=== PATIENT | female | born 1940 | race Caucasian/White ===

== ENCOUNTER 2017-11-05 18:02 | Inpatient (IN) | payer MEDICARE, BC ==
[2017-11-05 19:33] LABS: Troponin I 0.928 ng/mL (< 0.028)
[2017-11-06] MEDS ORDERED: Heparin 10,000 UNITS/ 10 ML VIAL SLOW IVP SCH ×2 (01:30→03:01)
[2017-11-06] MEDS ORDERED: Heparin 25,000 units/D5W 500 ML IV SCH (01:30)
[2017-11-06 01:44] VITALS: BMI 31.8
[2017-11-06 02:23] LABS: PTT 175.7 SEC (22.9-36.1)
[2017-11-06] MEDS ORDERED: Heparin 25,000 units/D5W 500 ML IVPB SCH (03:01)
[2017-11-06] MEDS ORDERED: Acetaminophen 325 MG TAB PO PRN (03:01)
[2017-11-06] MEDS ORDERED: Senokot 8.6 MG TAB PO PRN (03:01)
[2017-11-06] MEDS ORDERED: Nitroglycerin 50 MG/250 ML BOT 250 ML IVPB SCH (03:01)
[2017-11-06] MEDS ORDERED: Aspirin 325 MG TAB PO SCH ×2 (03:15→08:00)
[2017-11-06 03:22] LABS: Hemoglobin 11.7 g/dL (12.0-16.0); Platelet Count 341 thou/uL (130-400)
[2017-11-06 03:23] LABS: #Basophils 0.1 thou/uL (0.0-0.2); #Eosinphils 0.2 thou/uL (0.0-0.7); #Lymphocytes 3.4 thou/uL (1.20-3.40); #Monocytes 0.7 thou/uL (0.11-0.59); %Basophils 0.7 % (0.0-1.0); %Eosinophils 1.7 % (0.0-10.0); %Lymphocytes 36.9 % (21.0-51.0); %Neutrophils 53.7 % (42.0-75.0); Hemoglobin 11.7 g/dL (12.0-16.0); Mean Corpuscular HGB CONC 34.3 g/dL (32.0-36.0); Mean Corpuscular Hemoglobin 33.7 pg (27.0-31.0); Mean Corpuscular Volume 98.3 fl (81.0-99.0); Mean Platelet Volume 6.6 fL (7.4-10.4); Platelet Count 336 thou/uL (130-400); RBC Distribution Width 11.3 % (11.5-14.5); Red Blood Cell (RBC) Count 3.48 mill/uL (4.20-5.40); White Blood Cell (WBC) Count 9.3 thou/uL (4.8-10.8)
[2017-11-06 03:45] LABS: Anion Gap 13 mmol/L (10-20); BUN (Urea Nitrogen) 26 mg/dL (9.8-20.1); Calc. Creatinine Clearance 50 mL/min (70-130); Calcium 9.3 mg/dL (7.8-10.44); Carbon Dioxide 27 mmol/L (23-31); Cardiac Risk 3.6 (Less than 4.5); Chloride 104 mmol/L (98-107); Cholesterol 203 mg/dl (< 200 Desired); Estimated GFR-MDRD 52; Glucose 119 mg/dL (83-110); HDL Cholesterol 57 mg/dL (>60 Neg Risk); LDL Cholesterol, Calculated 122 mg/dL; Potassium 3.6 mmol/L (3.5-5.1); Sodium 140 mmol/L (136-145); Triglycerides 121 mg/dL (Less than 150)
[2017-11-06] MEDS ORDERED: Heparin 25,000 units/D5W 500 ML ONE (03:55)
--- NOTE | 2017-11-06 03:56 | HP ---
REASON FOR ADMISSION: Unstable angina. HISTORY OF PRESENT ILLNESS: The patient gives history of watching TV around 2: 00 p.m. yesterday when she started to develop retrosternal chest pain. The chest pains were 3 to 4/10 in intensity. This was lasting few minutes. The chest pains progressively got worse with intensity going up to 8/10 with radiation to left upper extremity, especially the thumb. She took a baby aspirin, but did not find much relief. She started to develop shortness of breath and finally went to [facility]. The patient also mentions that she ate stew day before and had some acid reflux symptoms and yesterday afternoon, she ate ramen noodles and again she thought she had acid reflux now retrospectively if she thinks both were episodes of possible chest pain like as of now. The patient follows up with Dr. Basil Levy, business services associate in [place]. She has had bilateral stents placed likely in her iliac arteries the way patient describes in 07/2017. She has had coronary artery bypass done in [address] Talley in [place]. PAST MEDICAL AND SURGICAL HISTORY: History of CABG in [address] Talley in [place] , prior stent to the coronary artery disease by Dr. Basil Levy likely iliac artery stent were done in 07/2017. She has had left carotid stents placed by Dr. Levy as well. Hypertension, dyslipidemia, appendectomy, cholecystectomy, hysterectomy. CURRENT MEDICATIONS: The patient is on Plavix 75 mg p.o. daily, aspirin 81 mg p.o. daily, Norvasc 10 mg daily, atorvastatin 40 mg p.o. q.p.m., Tribenzor 40/5/ 25 mg daily, rabeprazole 20 mg daily, celecoxib 100 mg 2 times daily. ALLERGIES: Allergic to LATEX, LISINOPRIL and STADOL. PERSONAL HISTORY: Does not abuse alcohol or drugs. No history of smoking. FAMILY HISTORY: Mom of aneurysm and its complications at the age of 68. Father of lung cancer in his 70s. REVIEW OF SYSTEMS: The following complete review of systems was negative, unless otherwise mentioned in the HPI or below: Constitutional: Weight loss or gain, ability to conduct usual activities. Skin: Rash, itching. Eyes: Double vision, pain. ENT/Mouth: Nose bleeding, neck stiffness, pain, tenderness. Cardiovascular: Palpitations, dyspnea on exertion, orthopnea. Respiratory: Shortness of breath, wheezing, cough, hemoptysis, fever or night sweats. Gastrointestinal: Poor appetite, abdominal pain, heartburn, nausea, vomiting, constipation, or diarrhea. Genitourinary: Urgency, frequency, dysuria, nocturia. Musculoskeletal: Pain, swelling. Neurologic/Psychiatric: Anxiety, depression. Allergy/Immunologic: Skin rash, bleeding tendency. PHYSICAL EXAMINATION: GENERAL: The patient is a 77-year-old female who is currently having mild chest discomfort. VITAL SIGNS: Blood pressure 116/74, pulse 68 per minute, respiratory rate 16 per minute, temperature 97.9 degrees Fahrenheit, saturating 94% on 4 liters nasal cannula on arrival. NECK: Supple, no elevated JVD. HEENT: Eyes: Extraocular muscles intact. Pupils reacting to light. Oral cavity: Mucous membranes are moist. No exudates or congestion. CARDIOVASCULAR SYSTEM: S1, S2 heard. Regular rhythm. RESPIRATORY: Air entry 1+ bilateral. Basal rales plus bilateral. ABDOMEN: Soft, bowel sounds heard. No tenderness, rigidity or guarding. EXTREMITIES: No peripheral edema or calf tenderness. Peripheral pulses are 1+ bilateral. No ischemic ulcers or gangrene. 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 CENTRAL NERVOUS SYSTEM: No gross focal deficits seen. The patient is alert, awake, oriented well. PSYCHIATRIC SYSTEM: The patient's mood is euthymic. No hallucinations or delusions. LABORATORY DATA AND X-RAY FINDINGS: EKG done shows sinus rhythm at 70 beats per minute. There is incomplete RBBB seen. White count of 11, H and H 13 and 38, platelet count 333 with 65% neutrophils, MCV is 93. PT, INR, PTT on arrival was within normal limits. PTT done at 1:50 a.m. on heparin drip is 175. Serum bicarbonate 21, BUN 30, creatinine 1.3, serum glucose is 295, albumin is 4.5, troponin I initial set was 0.04, the second set was 0.92, and third set is jump to 8.22, CK-MB was 4.3 on arrival. BNP 393.6. Chest x-ray done shows pulmonary vascular congestion. CLINICAL IMPRESSION AND PLAN: The patient will be admitted to ICU for unstable angina. Dr. Worley has been notified from ER. Patient will be kept n.p.o. We will let Dr. Worley know about the troponin jump up to 8. We will try to obtain records from Dr. Basil Levy her business services associate in [place]. This will be done in the morning. We will continue her on heparin drip and nitroglycerin drip. She will be on aspirin, Plavix, Lipitor, Lopressor 25 mg twice daily and morphine p.r.n. for pain. Echo with 2D Doppler will be obtained. Lipid profile as well. We will continue to closely monitor her in ICU. BRANDON
[2017-11-06] MEDS: Clopidogrel Bisulfate 75 MG TAB PO SCH (09:08)
[2017-11-06] MEDS: Metoprolol Tartrate 25 MG TAB PO SCH ×2 (09:20→20:54)
[2017-11-06] MEDS: Famotidine/PF 20 mg/2ml Vial SLOW IVP SCH (09:21)
--- NOTE | 2017-11-06 12:38 | PDOC.PN ---
- Subjective Encounter Start Date: 11/06/17 Encounter Start Time: 15:54 CC: Chest pain Sub: pt denies chest pain, denies dyspnea - Objective Resuscitation Status: Resuscitation Status FULL:Full Resuscitation Vital Signs & Weight: Vital Signs (12 hours) Temp Pulse Resp BP Pulse Ox 11/06/17 11:00 97.9 F 11/06/17 08:30 99.1 F 71 16 96 11/06/17 08:00 99.1 F 11/06/17 04:10 98.8 F 65 20 95 11/06/17 04:00 98.8 F 11/06/17 01:30 97.9 F 62 15 153/54 H 97 Most Recent Monitor Data Heart Rate from ECG 59 NIBP 138/47 NIBP BP-Mean 87 Respiration from ECG 15 SpO2 100 I&O: 11/05/17 11/06/17 11/07/17 06:59 06:59 06:59 Intake Total 16 0 Output Total 800 550 Balance -784 -550 Result Diagrams: 11/06/17 03:09 11/06/17 03:09 Phys Exam - Physical Examination Constitutional: NAD HEENT: moist MMs Neck: no JVD Respiratory: no wheezing, no rales, no rhonchi Cardiovascular: RRR, no significant murmur, no rub Gastrointestinal: soft, non-tender, no distention Neurological: non-focal Psychiatric: normal affect, A&O x 3 Skin: no rash Dx/Plan - Plan * . Pt is 77 yrs old female now admitted to hospital due to angina 1. Unstable angina + NSTEMI: Appreciate cardio input Pt wants to think about cath at this time. Management per cardio 2. HTN: Monitor bp clsoely. Continue bp med.s 3. H/O CAD: Continue plavix 75 mg po daily 4. H/O HPL + GERD: Continue statin and PPI case d/w pt & RN
--- NOTE | 2017-11-06 12:51 | CON ---
DATE OF CONSULTATION: 11/06/2017 HISTORY OF PRESENT ILLNESS: The patient is a pleasant 77-year-old woman with a history of coronary artery disease and peripheral vascular disease who presented with substernal chest discomfort. The patient has a long history of coronary artery disease. In 2002, she underwent coronary bypass graft surgery x3. She had a WATSON placed to the LAD and two saphenous vein grafts. The patient also has a history of severe peripheral vascular disease. She has had stents placed into her carotid arteries and non-amenable arteries. She also has a history of peripheral vascular disease and has stents placed into both iliac arteries as well as the distal aorta. The patient was in her usual state of health when she suddenly developed left-sided chest discomfort. The patient presented to the emergency room and received medication with resolution of her chest pain. The patient denies having any present chest discomfort. PAST MEDICAL HISTORY: 1. Coronary artery disease. 2. Cerebrovascular disease, status post stents in the carotid arteries. 3. Peripheral vascular disease. 4. Hypertension. 5. Dyslipidemia. 6. GE reflux. 7. History of renal artery stenosis with stents. PAST SURGICAL HISTORY: Hysterectomy, coronary bypass graft surgery, cholecystectomy, and carpal tunnel surgery. SOCIAL HISTORY: She is a former smoker. MEDICATIONS ON ADMISSION: Norvasc 10 daily, Plavix 75 daily, Lipitor 40 at bedtime, Tribenzor, 40/25 one tablet daily,and Celebrex 100 mg p.o. b.i.d. ALLERGIC: LATEX, STADOL, and LISINOPRIL. LISINOPRIL causes coughing. PHYSICAL EXAMINATION: GENERAL: She is a well-developed woman in no acute distress. VITAL SIGNS: Blood pressure 138/47. NECK: No jugular venous distention. LUNGS: Clear to auscultation. HEART: Regular rate and rhythm, normal S1, S2, 1/6 systolic murmur. ABDOMEN: Nondistended. EXTREMITIES: No edema. VASCULAR: Her left femoral pulse is 2+, the right femoral pulse is diminished. Distal pulses are diminished. LABORATORY DATA: White blood cell count 9.3, hemoglobin 11.7, hematocrit 34.2, platelets are 336. Her sodium was 140, potassium 3.6, chloride 104, bicarbonate 27, BUN 26, creatinine 1.03, glucose is 119, and troponin was 8.2. Her EKG revealed to have normal sinus rhythm with incomplete right bundle branch block and no acute ST-T wave changes. IMPRESSION: 1. Non-Q-wave myocardial infarction. 2. History of coronary bypass surgery x3. 3. Severe peripheral vascular disease with history of iliac stent and abdominal stents. This patient presents with a non-Q-wave myocardial infarction. The patient has a history of severe peripheral vascular disease. I have recommended the patient proceed with a repeat cardiac catheterization to define whether she has developed progressive coronary artery disease. The patient at this time is unsure whether she would like to proceed if she becomes agreeable,I will proceed with cardiac catheterization tomorrow morning. The patient will be treated with aspirin, Plavix, heparin, lipid-lowering medication and a beta- balwinder therapy. We will follow this patient with you through her hospitalization. BRANDON
[2017-11-06] MEDS: Atorvastatin Calcium 20 MG TAB PO SCH (20:54)
--- NOTE | 2017-11-06 21:46 | PRG ---
DATE OF SERVICE: 11/06/2017 Ms. Coyle is a 77-year-old female. She presented with severe retrosternal chest discomfort. She says she initially thought this is indigestion, but she did her usual, drink some liquids and swallowed some times. When her pain did not go way, she started to become concerned. She eventually presented to the emergency room and subsequently has been admitted to the ICU. I am consulted because they presented to the Critical Care Unit. She says she is pain free now. PAST MEDICAL HISTORY: Remarkable for, 1. Coronary artery bypass grafting in 2002. 2. History of carotid stenting bilaterally. 3. History of peripheral vascular disease. 4. History of hypertension. 5. Lipid disorder. 6. History of reflux disease. 7. History of renal stent. 8. Status post hysterectomy. 9. Status post cholecystectomy. 10. History of abdominal surgery. SOCIAL HISTORY: She is a former smoker, not a drinker. ALLERGIES: She reports intolerance to STADOL, LISINOPRIL, and LATEX. MEDICATIONS: She was on Norvasc, Plavix, Lipitor, Tribenzor, and Celebrex prior to admission. REVIEW OF SYSTEMS: Otherwise completely negative 12-point. FAMILY HISTORY: Noncontributory PHYSICAL EXAMINATION: GENERAL: She is in no distress. VITAL SIGNS: Blood pressure 163/57 this afternoon, 146/51 earlier. Heart rate in the 60s, respiratory rate in the teens. HEENT: Pupils are equal. Sclerae is anicteric. NECK: Supple. LUNGS: Clear. HEART: Regular rate and rhythm. S1 and S2 normal. Shows grade 2/6 systolic murmur. ABDOMEN: Soft and nontender. EXTREMITIES: Without asymmetry. LABORATORY DATA: White count 9.3, hemoglobin 11.7, platelets 336,000. Sodium 140, potassium 3.6, chloride 104, bicarb 27, BUN 26, creatinine 1.03, glucose 119. IMPRESSION: Angina with a non-Q-wave myocardial infarction. She is pain free. She is trying to decide whether she wants to undergo cardiac catheterization. She is contemplating to following up with her wage conciliator in [place]. We will happy to follow along with the other physicians caring for her. She is stable at this time. This is a 50 min consult with greater than 50% of the time was spent coordinating care on the unit. I also met with the and answered all of his questions. He had little to add to the above history. BRANDON
[2017-11-07 01:32] LABS: PTT 233.5 SEC (22.9-36.1)
[2017-11-07] MEDS: Clopidogrel Bisulfate 75 MG TAB PO SCH (08:21)
[2017-11-07] MEDS: Amlodipine 10 MG TAB PO SCH (08:21)
[2017-11-07] MEDS: Metoprolol Tartrate 25 MG TAB PO SCH ×2 (08:21→20:29)
[2017-11-07] MEDS: Famotidine/PF 20 mg/2ml Vial SLOW IVP SCH (08:25)
--- NOTE | 2017-11-07 15:44 | PDOC.PN ---
- Subjective Encounter Start Date: 11/07/17 Encounter Start Time: 15:43 Subjective: feels well. no new complaints. -: no more chest pain/SOB. -: family at bedside. care discussed - Objective Resuscitation Status: Resuscitation Status FULL:Full Resuscitation MAR Reviewed: Yes Vital Signs & Weight: Vital Signs (12 hours) Temp Pulse Pulse Pulse Resp BP BP 11/07/17 12:00 97.5 F L 11/07/17 09:58 55 L 50 L 154/43 H 151/46 H 11/07/17 08:21 62 11/07/17 07:24 98.0 F 62 16 11/07/17 07:00 98.0 F 11/07/17 03:51 98.1 F Pulse Ox Pulse Ox Pulse Ox 11/07/17 12:00 11/07/17 09:58 98 96 11/07/17 08:21 11/07/17 07:24 96 11/07/17 07:00 11/07/17 03:51 Most Recent Monitor Data Heart Rate from ECG 59 NIBP 125/43 NIBP BP-Mean 99 Respiration from ECG 15 SpO2 100 I&O: 11/06/17 11/07/17 11/08/17 06:59 06:59 06:59 Intake Total 16 1085 523.6 Output Total 800 2600 1050 [facility]784 -1515 -526.4 Result Diagrams: 11/06/17 03:09 11/06/17 03:09 Additional Labs: Laboratory Tests 11/05/17 11/05/17 11/05/17 17:05 18:53 21:55 Troponin I 0.042 H 0.928 H* 8.220 H* Radiology Reviewed by me: Yes (ECHO-NL EF.Diastolic dysFx) Phys Exam - Physical Examination Constitutional: NAD HEENT: PERRLA, moist MMs, sclera anicteric, TM's clear, oral pharynx no lesions , 2+ tonsils Neck: no nodes, no JVD, supple, full ROM Respiratory: no wheezing, no rales, no rhonchi, clear to auscultation bilateral Cardiovascular: RRR, no significant murmur Gastrointestinal: soft, non-tender, no distention, positive bowel sounds Musculoskeletal: no edema, pulses present Neurological: non-focal, normal sensation, moves all 4 limbs Psychiatric: normal affect, A&O x 3 Skin: no rash Dx/Plan (1) NSTEMI (non-ST elevated myocardial infarction) Code(s): I21.4 - NON-ST ELEVATION (NSTEMI) MYOCARDIAL INFARCTION Status: Acute (2) CAD (coronary artery disease) Code(s): I25.10 - ATHSCL HEART DISEASE OF [place] CORONARY ARTERY W/O ANG PCTRS Status: Chronic (3) HTN (hypertension) Code(s): I10 - ESSENTIAL (PRIMARY) HYPERTENSION Status: Chronic (4) HLD (hyperlipidemia) Code(s): E78.5 - HYPERLIPIDEMIA, UNSPECIFIED Status: Chronic - Plan plan discussed w/ family, out of bed/ambulate, DVT proph w/SCDs Cont ASA,statin,BB,ARB,Plavix -: Pt does not want cath here.will f/u w her maintenance worker in [place], [place] -: HD stable.OK to transition to Tele floor. -: cardiology following. -: am labs * . Review of Systems - Review of Systems Constitutional: negative: fever, chills, sweats, weakness, malaise, other Respiratory: negative: Cough, Dry, Shortness of Breath, Hemoptysis, SOB with Excertion, Pleuritic Pain, Sputum, Wheezing Cardiovascular: negative: chest pain, palpitations, orthopnea, paroxysmal nocturnal dyspnea, edema, light headedness, other Gastrointestinal: negative: Nausea, Vomiting, Abdominal Pain, Diarrhea, Constipation, Melena, Hematochezia, Other Genitourinary: negative: Dysuria, Frequency, Incontinence, Hematuria, Retention , Other Musculoskeletal: negative: Neck Pain, Shoulder Pain, Arm Pain, Back Pain, Hand Pain, Leg Pain, Foot Pain, Other Neurological: negative: Weakness, Numbness, Incoordination, Change in Speech, Confusion, Seizures, Other - Medications/Allergies Allergies/Adverse Reactions: Allergies Allergy/AdvReac Type Severity Reaction Status Date / Time butorphanol tartrate Allergy Verified 04/09/13 14:40 [From Stadol] lisinopril Allergy Verified 04/07/14 17:44 Medications: Current Medications Acetaminophen (Tylenol) 650 mg PO Q4H PRN PRN Reason: Headache/Fever or Pain Amlodipine Besylate (Norvasc) 10 mg PO DAILY CARMEN Last Admin: 11/07/17 08:21 Dose: 10 mg Aspirin (Aspirin Chewable) 81 mg PO QAM-WM [facility] Last Admin: 11/07/17 08:25 Dose: 81 mg Atorvastatin Calcium (Lipitor) 20 mg PO QPM [facility] Last Admin: 11/06/17 20:54 Dose: 20 mg Clopidogrel Bisulfate (Plavix) 75 mg PO DAILY [facility] Last Admin: 11/07/17 08:21 Dose: 75 mg Enoxaparin Sodium (Lovenox) 40 mg SC 2100 [facility] Famotidine (Pepcid) 20 mg SLOW IVP Q24HR [facility] Last Admin: 11/07/17 08:25 Dose: 20 mg Heparin Sodium (Porcine) (Heparin 1,000 Units/Ml (10 Ml)) 0 units SLOW IVP ASDIR CARMEN PRN Reason: Protocol Last Admin: 11/06/17 19:12 Dose: 2,300 unit Nitroglycerin/Dextrose (Nitroglycerin 50 Mg/250 Ml Bot) 250 mls @ 0 mls/hr IVPB INF [facility]; Titrate PRN Reason: Protocol Metoprolol Tartrate (Lopressor) 25 mg PO BID [facility] Last Admin: 11/07/17 08:21 Dose: 25 mg Morphine Sulfate (Morphine) 2 mg SLOW IVP Q5MIN PRN PRN Reason: Chest Pain Olmesartan (Benicar) 20 mg PO DAILY [facility] Last Admin: 11/07/17 08:21 Dose: 20 mg Senna (Senokot) 2 tab PO HSPRN PRN PRN Reason: Constipation Sodium Chloride (Flush - Normal Saline) 10 ml IVF Q12HR [facility] Last Admin: 11/07/17 08:21 Dose: 10 ml Sodium Chloride (Flush - Normal Saline) 10 ml IVF PRN PRN PRN Reason: Saline Flush
[2017-11-07] MEDS: Atorvastatin Calcium 20 MG TAB PO SCH (20:29)
[2017-11-07] MEDS: Enoxaparin Sodium 40 MG/0.4 ML SYRINGE SC SCH (20:29)
--- NOTE | 2017-11-07 21:17 | PRG ---
DATE OF SERVICE: 11/07/2017 SUBJECTIVE: Shonna Coyle denies having chest pain. She is tentatively scheduled to move out of [facility] ICU. OBJECTIVE: VITAL SIGNS: She is on room air, heart rate is in 50s, blood pressure 158/74, respiratory rates in t he teens. LUNGS: Clear. HEART: Regular rhythm. ABDOMEN: Soft. LABORATORY DATA: There is no new lab. Troponin 2 days ago was 8.2. IMPRESSION: Myocardial infarction. PLAN: Continue current care. I met with the family and answered all their questions.
[2017-11-08] MEDS ORDERED: CCU Electrolyte Replacement 1 EACH FS ONE (00:02)
[2017-11-08] MEDS ORDERED: Atropine Sulfate 1 mg/10 ml Syringe IVP PRN (00:02)
--- NOTE | 2017-11-08 00:04 | PDOC.EVN ---
Event Note - Event Note Event Note: RN called due to bradycardia. Will get STAT labs. Atropine PRN
[2017-11-08] MEDS ORDERED: Potassium Chloride 40 MEQ in Premix Bag 1 BAG IVPB PRN (00:08)
[2017-11-08] MEDS ORDERED: Magnesium Oxide 400 MG TAB PO PRN ×2 (00:08)
[2017-11-08] MEDS ORDERED: Magnesium 2 GM/NS 0.9% 100 ML 2 GM in Premix Bag 1 BAG IVPB PRN (00:08)
[2017-11-08] MEDS ORDERED: Potassium Phosphate 9 MMOL in Sodium Chloride 0.9% 100 ML IVPB PRN (00:08)
[2017-11-08] MEDS ORDERED: Potassium Chloride 40 MEQ in Sodium Chloride 0.9% 250 ML 250 ML IVPB PRN (00:08)
[2017-11-08] MEDS ORDERED: Potassium Chloride 20 MEQ TAB PO PRN (00:08)
[2017-11-08] MEDS ORDERED: Potassium Phosphate 12 MMOL in Sodium Chloride 0.9% 250 ML 250 ML IV PRN (00:08)
[2017-11-08] MEDS ORDERED: CCU ELECTROLYTE REPLACEMENT PROTOCOL FS PRN (00:08)
[2017-11-08] MEDS ORDERED: Potassium Phosphate 15 MMOL in Sodium Chloride 0.9% 250 ML 250 ML IV PRN (00:08)
[2017-11-08 00:39] LABS: #Basophils 0.1 thou/uL (0.0-0.2); #Eosinphils 0.3 thou/uL (0.0-0.7); #Lymphocytes 3.4 thou/uL (1.20-3.40); #Monocytes 0.6 thou/uL (0.11-0.59); #Neutrophils 3.6 thou/uL (1.40-6.50); %Basophils 0.9 % (0.0-1.0); %Eosinophils 3.7 % (0.0-10.0); %Lymphocytes 42.9 % (21.0-51.0); %Monocytes 7.8 % (0.0-10.0); %Neutrophils 44.8 % (42.0-75.0); Hemoglobin 12.5 g/dL (12.0-16.0); Mean Corpuscular HGB CONC 33.1 g/dL (32.0-36.0); Mean Corpuscular Volume 99.5 fl (81.0-99.0); Mean Platelet Volume 6.3 fL (7.4-10.4); Platelet Count 327 thou/uL (130-400); RBC Distribution Width 11.3 % (11.5-14.5); Red Blood Cell (RBC) Count 3.79 mill/uL (4.20-5.40); White Blood Cell (WBC) Count 7.9 thou/uL (4.8-10.8)
[2017-11-08 00:57] LABS: Albumin 3.9 g/dL (3.4-4.8); Anion Gap 15 mmol/L (10-20); BUN (Urea Nitrogen) 20 mg/dL (9.8-20.1); BUN/Creatinine Ratio 18.69; Calc. Creatinine Clearance 48 mL/min (70-130); Calcium 9.1 mg/dL (7.8-10.44); Carbon Dioxide 22 mmol/L (23-31); Chloride 102 mmol/L (98-107); Estimated GFR-MDRD 49; Glucose 98 mg/dL (83-110); Magnesium 1.8 mg/dL (1.6-2.6); Phosphorus 4.3 mg/dL (2.3-4.7); Potassium 3.6 mmol/L (3.5-5.1); Sodium 135 mmol/L (136-145)
[2017-11-08] MEDS: Famotidine/PF 20 mg/2ml Vial SLOW IVP SCH (07:54)
[2017-11-08] MEDS: Amlodipine 10 MG TAB PO SCH (07:54)
[2017-11-08] MEDS: Clopidogrel Bisulfate 75 MG TAB PO SCH (07:55)
[2017-11-08 14:27] LABS: Anion Gap 14 mmol/L (10-20); BUN (Urea Nitrogen) 21 mg/dL (9.8-20.1); Calc. Creatinine Clearance 45 mL/min (70-130); Calcium 9.1 mg/dL (7.8-10.44); Carbon Dioxide 23 mmol/L (23-31); Chloride 100 mmol/L (98-107); Estimated GFR-MDRD 46; Glucose 93 mg/dL (83-110); Potassium 4.3 mmol/L (3.5-5.1); Sodium 133 mmol/L (136-145)
--- NOTE | 2017-11-08 15:05 | PDOC.PN ---
- Subjective Encounter Start Date: 11/08/17 Encounter Start Time: 15:03 Subjective: feels much better. no chest pain/SOB.good appetite - Objective Resuscitation Status: Resuscitation Status FULL:Full Resuscitation MAR Reviewed: Yes Vital Signs & Weight: Vital Signs (12 hours) Temp Pulse Resp Pulse Ox 11/08/17 11:00 98.0 F 11/08/17 08:00 97.7 F 52 L 15 98 11/08/17 07:00 97.7 F 11/08/17 04:00 98 F Most Recent Monitor Data Heart Rate from ECG 51 NIBP 163/57 NIBP BP-Mean 110 Respiration from ECG 15 SpO2 98 I&O: 11/07/17 11/08/17 11/09/17 06:59 06:59 06:59 Intake Total 1085 1563.6 1200 Output Total 2600 3300 1125 Balance -1515 -1736.4 75 Result Diagrams: 11/08/17 00:23 11/08/17 13:57 Additional Labs: Laboratory Tests 11/05/17 11/05/17 11/06/17 18:53 21:55 03:09 Creatinine 1.03 Phosphorus Troponin I 0.928 H* 8.220 H* Triglycerides 121 Cholesterol 203 H LDL Cholesterol, Calc 122 HDL Cholesterol 57 11/08/17 11/08/17 00:23 13:57 Creatinine 1.07 1.15 H Phosphorus 4.3 Troponin I Triglycerides Cholesterol LDL Cholesterol, Calc HDL Cholesterol Phys Exam - Physical Examination Constitutional: NAD HEENT: PERRLA, moist MMs, sclera anicteric, oral pharynx no lesions Neck: no nodes, no JVD, supple, full ROM Respiratory: no wheezing, no rales, no rhonchi, clear to auscultation bilateral Cardiovascular: RRR, no significant murmur Gastrointestinal: soft, non-tender, no distention, positive bowel sounds Musculoskeletal: no edema, pulses present Neurological: non-focal, normal sensation, moves all 4 limbs Psychiatric: normal affect, A&O x 3 Skin: no rash Dx/Plan (1) NSTEMI (non-ST elevated myocardial infarction) Code(s): I21.4 - NON-ST ELEVATION (NSTEMI) MYOCARDIAL INFARCTION Status: Acute (2) CAD (coronary artery disease) Code(s): I25.10 - ATHSCL HEART DISEASE OF [place] CORONARY ARTERY W/O ANG PCTRS Status: Chronic (3) HTN (hypertension) Code(s): I10 - ESSENTIAL (PRIMARY) HYPERTENSION Status: Chronic (4) HLD (hyperlipidemia) Code(s): E78.5 - HYPERLIPIDEMIA, UNSPECIFIED Status: Chronic - Plan plan discussed w/ family, respiratory therapy, incentive spirometry, out of bed/ ambulate, DVT proph w/SCDs cont ASA,ARB.statin,plavix.off of Heparin drip. -: Had sinus bradycardia while sleeping ;last night.BB held. -: monitor renal Fx .ARB dose increased.BP controlled.on amlodipine -: monitor Overnight & DC in am if no more hypotension/bradycardia -: wants to f/u w her own uat tester for Cath.has appointment * . Review of Systems - Review of Systems Constitutional: negative: fever, chills, sweats, weakness, malaise, other ENT: negative: Ear Pain, Ear Discharge, Nose Pain, Nose Discharge, Nose Congestion, Mouth Pain, Mouth Swelling, Throat Pain, Throat Swelling, Other Respiratory: negative: Cough, Dry, Shortness of Breath, Hemoptysis, SOB with Excertion, Pleuritic Pain, Sputum, Wheezing Cardiovascular: negative: chest pain, palpitations, orthopnea, paroxysmal nocturnal dyspnea, edema, light headedness, other Gastrointestinal: negative: Nausea, Vomiting, Abdominal Pain, Diarrhea, Constipation, Melena, Hematochezia, Other Genitourinary: negative: Dysuria, Frequency, Incontinence, Hematuria, Retention , Other Musculoskeletal: negative: Neck Pain, Shoulder Pain, Arm Pain, Back Pain, Hand Pain, Leg Pain, Foot Pain, Other Neurological: negative: Weakness, Numbness, Incoordination, Change in Speech, Confusion, Seizures, Other - Medications/Allergies Allergies/Adverse Reactions: Allergies Allergy/AdvReac Type Severity Reaction Status Date / Time butorphanol tartrate Allergy Verified 04/09/13 14:40 [From Stadol] lisinopril Allergy Verified 04/07/14 17:44 Medications: Current Medications Acetaminophen (Tylenol) 650 mg PO Q4H PRN PRN Reason: Headache/Fever or Pain Amlodipine Besylate (Norvasc) 10 mg PO DAILY [facility] Last Admin: 11/08/17 07:54 Dose: 10 mg Aspirin (Aspirin Chewable) 81 mg PO QA-[facility] Last Admin: 11/08/17 07:55 Dose: 81 mg Atorvastatin Calcium (Lipitor) 20 mg PO QPM [facility] Last Admin: 11/07/17 20:29 Dose: 20 mg Atropine Sulfate (Atropine) 0.5 mg IVP ASDIR PRN PRN Reason: Sustained Bradycardia Clopidogrel Bisulfate (Plavix) 75 mg PO DAILY [facility] Last Admin: 11/08/17 07:55 Dose: 75 mg Enoxaparin Sodium (Lovenox) 40 mg SC 2100 [facility] Last Admin: 11/07/17 20:29 Dose: 40 mg Famotidine (Pepcid) 20 mg PO BID [facility] Nitroglycerin/Dextrose (Nitroglycerin 50 Mg/250 Ml Bot) 250 mls @ 0 mls/hr IVPB INF CARMEN; Titrate PRN Reason: Protocol Potassium Chloride 40 meq/ (Sodium Chloride) 270 mls @ 135 mls/hr IVPB ASDIR PRN PRN Reason: FOR SERUM K+ 2.5 - 3.5 Potassium Chloride 40 meq/ (Device) 100 mls @ 50 mls/hr IVPB ASDIR PRN PRN Reason: FOR SERUM K+ 2.5 - 3.5 Magnesium Sulfate 1 gm/ Sodium (Chloride) 102 mls @ 102 mls/hr IV PRN PRN PRN Reason: MAG LEVEL 1.4 - 2.0 Last Admin: 11/08/17 01:11 Dose: 102 mls Magnesium Sulfate 2 gm/ Device 100 mls @ 100 mls/hr IVPB ASDIR PRN PRN Reason: MAGNESIUM < 1.4 Potassium Phosphate 9 mmol/ (Sodium Chloride) 103 mls @ 25.75 mls/hr IVPB ASDIR PRN PRN Reason: Phosphate 1.0-1.8 Potassium Phosphate 12 mmol/ (Sodium Chloride) 254 mls @ 63.5 mls/hr IV ASDIR PRN PRN Reason: Serum phosphate 0.5-0.9 Potassium Phosphate 15 mmol/ (Sodium Chloride) 255 mls @ 63.75 mls/hr IV ASDIR PRN PRN Reason: Serum Phos < 0.5 Magnesium Oxide (Magnesium Oxide) 400 mg PO BIDPRN PRN PRN Reason: FOR SERUM MAG 1.4 - 2.0 Magnesium Oxide (Magnesium Oxide) 800 mg PO PRN PRN PRN Reason: FOR SERUM MAG < 1.4 Miscellaneous Medication (Phos-Nak) 1 pkt PO TIDPRN PRN PRN Reason: FOR PHOS LEVEL 1.0 - 1.8 Miscellaneous Medication (Phos-Nak) 2 pkt PO TIDPRN PRN PRN Reason: FOR PHOS LEVEL 0.5 - 1.0 Morphine Sulfate (Morphine) 2 mg SLOW IVP Q5MIN PRN PRN Reason: Chest Pain Ccu Electrolyte (Replacement Protocol) 0 each FS PRN PRN PRN Reason: FOR ELECTROLYTE REPLACEMENT Olmesartan (Benicar) 40 mg PO DAILY [facility] Last Admin: 11/08/17 09:34 Dose: 20 mg Potassium Chloride (K-Dur) 40 meq PO ASDIR PRN PRN Reason: FOR SERUM K+ 2.5 - 3.5 Potassium Chloride (Klor-Con) 40 meq PER TUBE ASDIR PRN PRN Reason: FOR SERUM K+ 2.5-3.5 Senna (Senokot) 2 tab PO HSPRN PRN PRN Reason: Constipation Sodium Chloride (Flush - Normal Saline) 10 ml IVF Q12HR [facility] Last Admin: 11/08/17 07:54 Dose: 10 ml Sodium Chloride (Flush - Normal Saline) 10 ml IVF PRN PRN PRN Reason: Saline Flush
--- NOTE | 2017-11-08 20:04 | PRG ---
DATE OF SERVICE: 11/08/2017 SUBJECTIVE: Ms. Coyle is doing well. She denies having any chest pain. She is in good spirits. OBJECTIVE: VITAL SIGNS: She is afebrile, heart rate is in the 50s, blood pressure 161/55, respiratory rate is i n the teens. LUNGS: Clear. HEART: Regular rhythm. ABDOMEN: Soft. LABORATORY DATA: White count 7.9, hemoglobin 12.5, platelets 327. Sodium 133, potassium 4.3, chloride 100, bicarbonate 23, BUN 20, creatinine 1.15. Intake and output negative 1736. IMPRESSION: 1. Status post myocardial infarction. 2. Negative fluid balances, slightly increased creatinine. This will continue to be monitored. 3. Hypertension that is not adequately controlled in the setting of an acute NC. This is per the spitalist and Cardiology. PLAN: Transfer out of the ICU when telemetry bed is available.
[2017-11-08] MEDS: Famotidine 20 MG TAB PO SCH (20:45)
[2017-11-08] MEDS: Atorvastatin Calcium 20 MG TAB PO SCH (20:45)
[2017-11-08] MEDS: Enoxaparin Sodium 40 MG/0.4 ML SYRINGE SC SCH (20:46)
[2017-11-09] MEDS: Famotidine 20 MG TAB PO SCH (09:09)
[2017-11-09] MEDS: Clopidogrel Bisulfate 75 MG TAB PO SCH (09:11)
[2017-11-09] MEDS: Amlodipine 10 MG TAB PO SCH (10:59)
--- NOTE | 2017-11-09 15:36 | PRG ---
DATE OF SERVICE: 11/09/2017 SUBJECTIVE: Shonna Coyle has no complaints. She denies chest pain. She says that she had a littl e headache today, for which she has received Tylenol. OBJECTIVE: VITAL SIGNS: She is afebrile, heart rate is in the 50s, respiratory rate is in the teens, oximetry i s 98 on room air, blood pressure is still elevated between 172 and 190 systolic this morning. LUNGS: Clear. HEART: Regular rhythm. ABDOMEN: Soft. IMPRESSION: Status post myocardial infarction. She is tentatively scheduled followup with her cardi ologist on Sunday. It will be nice if her blood pressure was well controls in the setting of a recen t myocardial infarction. We will sign off.
[2017-11-09 15:57] VITALS: BP 156/68; TEMP 97.9
--- NOTE | 2017-11-09 22:22 | DIS ---
DATE OF ADMISSION: 11/05/2017 DATE OF DISCHARGE: 11/09/2017 DISCHARGE DIAGNOSES: 1. Non-ST elevation myocardial infarction, medical management. 2. Coronary artery disease. 3. Hypertension, labile. 4. Hyperlipidemia. 5. Sinus bradycardia, iatrogenic. 6. Chronic kidney disease stage 3. CONSULTATIONS: Dr. Rasmussen with Cardiology service. Dr. Bragg with Pulmonology Critical Care servi ce. PERTINENT LAB AND X-RAY FINDINGS: Creatinine ranged between 1.03 to 1.15 with estimated GFR ranging between 46 to 52, phosphorus 4.3, magnesium 1.8, troponin I ranged between 0.042 to 8.22, total ramakrishna sterol 203, triglycerides 121, HDL 57, LDL 122. CBC showed hemoglobin ranging between 11.7 to 12.5. A 2D transthoracic echocardiogram dated on 11/06/2017 showed ejection fraction of 50% to 55%. Mild left atrial enlargement. Diastolic dysfunction. Mild mitral and tricuspid valve regurgitation. Mil d aortic stenosis. HOSPITAL COURSE: The patient was admitted to the critical care unit after initially presenting with chest pain and concern for unstable angina. Patient underwent serial troponin I evaluation showing o verall increasing trend up to a peak of 8.22. Patient was evaluated by the Cardiology service with r ecommendations for ongoing medical management and recommendations to pursue cardiac catheterization. Patient was initially placed on heparin and nitroglycerin infusion as well as given aspirin, Plavix, Lipitor, and Lopressor. Patient denied proceeding with a cardiac catheterization at [facility] and wished to pursue a cardiac evaluation with her primary instructor military science in the [place] area after discharge. Patient was medically managed and stabilizes clinically; however, was noted with labile hypertensio n with the addition of Imdur 60 mg daily. Patient continued on dual antiplatelet therapy as well as Lipitor and chest pain free for remainder the hospital course. Telemetry monitoring showed intermitt ent premature ventricular contractions with underlying sinus mechanism with sinus bradycardia induced from Lopressor. Overall, the patient remained clinically stable to the hospital course, tolerating regular oral intake, voiding appropriately, ambulating without assistance or difficulty and ready for discharge on 11/09/2017. DISCHARGE MEDICATIONS: 1. Aspirin 81 mg 1 tab p.o. daily. 2. Plavix 75 mg 1 tab p.o. daily. 3. Amlodipine 10 mg one tab p.o. daily. 4. Lipitor 40 mg p.o. at bedtime. 5. Celebrex 100 mg p.o. b.i.d. p.r.n. 6. Isosorbide mononitrate 60 mg one tab p.o. daily. 7. Initial Norvasc 10 mg daily. Discontinue the Norvasc solo agent. 8. Olmesartan/amlodipine/hydrochlorothiazide 40 mg/5 mg/25 mg 1 tablet p.o. daily. 9. Aciphex 20 mg p.o. daily. FOLLOWUP: The patient may follow up with her primary care provider, Dr. Shannon Ellis in [place], [place] within 7 days of discharge. Patient may follow up with her primary instructor military science, Dr. Basil Levy, at [facility] on 11/12/2017. CONDITION ON DISCHARGE: Stable. ACTIVITY: Ad rachelle. DIET: Heart healthy. CODE STATUS: FULL. DISPOSITION: Home 11/09/2017. Total time preparing and coordinating discharge was 32 minutes.
== END 2017-11-09 18:27 | disposition home or self-care (01) | DRG 282 ==
LOC: ERS 18:02 → ERHOLD 20:00 → CCU 11-06 04:00 → 2NO 11-08 18:38
PROVIDERS: ADMIT Family Medicine; ATTEND Family Medicine
DX: I21.4 Non-ST elevation (NSTEMI) myocardial infarction (principal); N18.3 Chronic kidney disease, stage 3 (moderate); I73.9 Peripheral vascular disease, unspecified; E78.5 Hyperlipidemia, unspecified; I12.9 Hypertensive chronic kidney disease with stage 1 through stage 4 chronic kidney disease, or unspecified chronic kidney disease; Z95.1 Presence of aortocoronary bypass graft; Z87.891 Personal history of nicotine dependence; R00.1 Bradycardia, unspecified; I08.0 Rheumatic disorders of both mitral and aortic valves; I25.10 Atherosclerotic heart disease of native coronary artery without angina pectoris
CPT/HCPCS: 36415; 80048; 80061; 80069; 83735; 85014; 85018; 85025; 85049; 85730; 93005; 93306; 93798; 96361; 96365; 96366; A4216; J1644; J1650; J3475; J7050; S0028

== ENCOUNTER 2017-12-03 18:14 | Inpatient (IN) | payer MEDICARE, BC ==
[2017-12-03 18:45] LABS: #Lymphocytes 1.8 thou/uL (1.20-3.40); #Monocytes 0.4 thou/uL (0.11-0.59); #Neutrophils 11.5 thou/uL (1.40-6.50); %Basophils 0.2 % (0.0-1.0); %Eosinophils 0.3 % (0.0-10.0); %Lymphocytes 12.8 % (21.0-51.0); %Monocytes 3.2 % (0.0-10.0); %Neutrophils 83.4 % (42.0-75.0); Hemoglobin 13.3 g/dL (12.0-16.0); Mean Corpuscular HGB CONC 34.2 g/dL (32.0-36.0); Mean Corpuscular Hemoglobin 32.8 pg (27.0-31.0); Mean Corpuscular Volume 96.2 fl (81.0-99.0); Mean Platelet Volume 6.5 fL (7.4-10.4); Platelet Count 338 thou/uL (130-400); RBC Distribution Width 11.2 % (11.5-14.5); Red Blood Cell (RBC) Count 4.06 mill/uL (4.20-5.40); White Blood Cell (WBC) Count 13.8 thou/uL (4.8-10.8)
[2017-12-03 18:50] LABS: PTT 32.3 SEC (22.9-36.1); Prothrombin Time 13.1 SEC (12.0-14.7)
--- NOTE | 2017-12-03 19:04 | RAD ---
CHEST ONE VIEW: History: Chest pain. Comparison: 11-05-17 FINDINGS: Mild pulmonary venous congestion. Nodular density projecting over the right lower lobe. Lung apices are clear. No pneumothorax or effusion. Prior cardiac surgery. No acute osseous abnormality. IMPRESSION: 1. Mild pulmonary venous congestion. 2. Nodular density right lower lobe. 3. Nonemergent follow up CT of the chest recommended. CODE: LN POS: LEANDRA
[2017-12-03 19:10] LABS: ALT (SGPT) 14 U/L (8-55); AST (SGOT) 19 U/L (5-34); Albumin 4.5 g/dL (3.4-4.8); Alkaline Phosphatase 102 U/L (40-150); Anion Gap 16 mmol/L (10-20); BUN (Urea Nitrogen) 19 mg/dL (9.8-20.1); Bilirubin, Total 0.4 mg/dL (0.2-1.2); CK (CPK) 136 U/L (29-168); Calc. Creatinine Clearance 0 mL/min (70-130); Calcium 9.8 mg/dL (7.8-10.44); Carbon Dioxide 22 mmol/L (23-31); Chloride 99 mmol/L (98-107); Estimated GFR-MDRD 43; Globulin 3.5 g/dL (2.4-3.5); Glucose 165 mg/dL (83-110); Potassium 3.6 mmol/L (3.5-5.1); Sodium 133 mmol/L (136-145)
[2017-12-03 19:13] LABS: CKMB 3.5 ng/mL (0-6.6); Troponin I 0.024 ng/mL (< 0.028)
[2017-12-03] MEDS ORDERED: Acetaminophen 650 MG Suppository PR PRN (21:44)
[2017-12-03] MEDS ORDERED: Ondansetron HCl/PF 4 MG/2 ML Vial IVP PRN (21:44)
[2017-12-03] MEDS ORDERED: Acetaminophen 325 MG TAB PO PRN (21:44)
[2017-12-03] MEDS ORDERED: Nitroglycerin 0.4 MG TAB (25 Tab Bottle) PO PRN (21:44)
[2017-12-03] MEDS ORDERED: Lidocaine 2% Viscous Solution 10 ML, Aluminum & Magnesium Hydroxide 30 ML SSW PRN ×2 (21:46)
[2017-12-03] MEDS ORDERED: Lidocaine 2% Viscous Solution 10 ML, Aluminum & Magnesium Hydroxide 30 ML SSW SCH ×2 (22:00)
[2017-12-03 22:23] LABS: Troponin I 0.047 ng/mL (< 0.028)
--- NOTE | 2017-12-03 22:31 | HP ---
PRIMARY CARE PROVIDER: YOBANI Chowdhury CHIEF COMPLAINT: Chest pain. HISTORY OF PRESENT ILLNESS: Ms. Coyle is a pleasant 77-year-old lady who was seen at [facility] on 12/03/2017. She was hospitalized at this facility from 11/06/2017 to 11/09/2017 of this year for non-ST elevation myocardial infarction. She was offered cardiac catheterization during that hospitalization. She pr eferred to follow up with her health care recruiter, Dr. Levy in [place]. She reports that 3 days after the dis charge, she had a nuclear stress test. She followed up with Dr. Levy and was told that there was no significant difference between the stress test and the one she had in the past. She continued to do well. Today, she had a busy morning. She came home around 3:00 p.m. She used the bathroom. When she got up from the bathroom, she felt short of breath and chest pain. She describes the pain as ini tially sharp, 10/10, no known aggravating factors, but improved with nitroglycerin. She reports that it was accompanied by shortness of breath, but not by lightheadedness or nausea. She reports that t he pain was similar to when she had myocardial infarction. She also reports that in the ambulance, she felt that the pain was burning. The initial pain at home was across her chest and radiating to the back. She reports that she also had pressure-like sensati on. REVIEW OF SYSTEMS: The following complete review of systems was negative, unless otherwise mentioned in the HPI or below: Constitutional: Weight loss or gain, ability to conduct usual activities. Sk in: Rash, itching. Eyes: Double vision, pain. ENT/Mouth: Nose bleeding, neck stiffness, pain, te nderness. Cardiovascular: Palpitations, dyspnea on exertion, orthopnea. Respiratory: Shortness of breath, wheezing, cough, hemoptysis, fever or night sweats. Gastrointestinal: Poor appetite, abdom inal pain, heartburn, nausea, vomiting, constipation, or diarrhea. Genitourinary: Urgency, frequenc y, dysuria, nocturia. Musculoskeletal: Pain, swelling. Neurologic/Psychiatric: Anxiety, depressio n. Allergy/Immunologic: Skin rash, bleeding tendency. PAST MEDICAL HISTORY: Significant for coronary artery disease, hypertension, and dyslipidemia. PAST SURGICAL HISTORY: Significant for coronary artery bypass graft, prior stent to coronary artery disease, likely iliac artery stent, left carotid stents, appendectomy, cholecystectomy, and hysterect leatha. FAMILY HISTORY: Mother of aneurysm at age 68. Father of lung cancer in his 70s. SOCIAL HISTORY: The patient denies tobacco use, alcohol use or recreational drug use. CODE STATUS: I discussed her code status. She is DNR. ALLERGIES: LATEX, LISINOPRIL, and STADOL. CURRENT MEDICATIONS: Plavix 75 mg daily, aspirin 81 mg daily, Norvasc 10 mg daily, atorvastatin 40 m g in the evening, Tribenzor 40/5/25 mg daily, rabeprazole 20 mg daily, and Celecoxib 100 mg 2 times a day. PHYSICAL EXAMINATION: GENERAL: Mr. Coyle is awake and alert, not in acute distress. VITAL SIGNS: Blood pressure is 167/79, pulse is 62. She is breathing at rate of 18, and saturating 95% on room air. She is afebrile. EYES: No scleral icterus. No conjunctival pallor. ENT: Moist mucosal membranes, no oropharyngeal erythema or exudates. NECK: Supple, nontender, normal range of movement. Trachea is midline. RESPIRATORY: Accessory muscles of breathing are not active. Chest wall movements are symmetric bila terally. LUNGS: Clear to auscultation without wheeze, rhonchi or crepitations. CARDIOVASCULAR: S1 and S2 are heard, regular. Peripheral pulses palpable. No carotid bruit, no per icardial rub. ABDOMEN: Soft, nontender, bowel sounds are heard, no hepatomegaly, no splenomegaly. NEUROLOGIC: Cranial nerves II-XII intact. Deep tendon reflexes are 2+. MUSCULOSKELETAL: Power is 5/5 in all 4 extremities. Normal range of movement at all major extremity joints. SKIN: No rashes or subcutaneous nodules. LYMPHATIC: No cervical lymphadenopathy. PSYCHIATRIC: Normal mood, normal affect, patient is oriented to person, place, and time. LABORATORY DATA: Mr. Coyle's labs and investigations were reviewed. I reviewed her electrocardiog rangel, which shows normal sinus rhythm with premature atrial complexes, no ST changes to suggest an acu te coronary syndrome. I also reviewed her chest x-ray, which does not show any pulmonary infiltrates . She has a nodular density of the right lower lobe. The radiologist recommends nonemergent followu p of CT of the chest. She has leukocytosis with 13,800 white cells, of which 83.4% are neutrophils, normal hemoglobin, normal platelet count, INR 1.0, decreased sodium of 133, normal potassium, elevate d creatinine of 1.21, last known creatinine 1.26 on 11/19/2017, normal liver profile, and elevated BN P of 285.6. ASSESSMENT AND PLAN: Mr. Coyle is a pleasant 77-year-old lady who was seen at [facility] on 12/03/2017. Her problem list includes: 1. Chest pain: She presents with a chest pain that improved with nitroglycerin. Differential diagn osis still includes cardiac causes and other etiologies such as esophageal causes. She will be admit rajwinder to the hospital for rechecking her troponins. Cardiology service will be consulted. 2. Gastroesophageal reflux disease: Patient has a history of gastroesophageal reflux disease. We w ill start her on GI cocktail. 3. Hypertension: Monitor vital signs, titrate antihypertensives as needed. 4. Dyslipidemia: Continue statin. Many thanks for allowing me to participate in your patient's care. Please feel free to contact me wi th any questions or concerns. LEVEL OF RISK: High. LEVEL OF COMPLEXITY: High.
[2017-12-04 00:13] VITALS: BMI 34.1
[2017-12-04] MEDS ORDERED: cloNIDine 0.1 MG TAB PO SCH (00:15)
[2017-12-04 01:11] LABS: Troponin I 0.059 ng/mL (< 0.028)
[2017-12-04 05:08] LABS: #Eosinphils 0.1 thou/uL (0.0-0.7); #Lymphocytes 2.8 thou/uL (1.20-3.40); #Monocytes 0.7 thou/uL (0.11-0.59); #Neutrophils 7.6 thou/uL (1.40-6.50); %Basophils 0.2 % (0.0-1.0); %Eosinophils 0.7 % (0.0-10.0); %Lymphocytes 25.3 % (21.0-51.0); %Monocytes 5.8 % (0.0-10.0); Hemoglobin 12.8 g/dL (12.0-16.0); Mean Corpuscular HGB CONC 34.6 g/dL (32.0-36.0); Mean Corpuscular Hemoglobin 33.2 pg (27.0-31.0); Mean Corpuscular Volume 96.1 fl (81.0-99.0); Mean Platelet Volume 6.8 fL (7.4-10.4); Platelet Count 293 thou/uL (130-400); RBC Distribution Width 11.2 % (11.5-14.5); Red Blood Cell (RBC) Count 3.85 mill/uL (4.20-5.40); White Blood Cell (WBC) Count 11.2 thou/uL (4.8-10.8)
[2017-12-04 05:23] LABS: Anion Gap 13 mmol/L (10-20); BUN (Urea Nitrogen) 16 mg/dL (9.8-20.1); Calc. Creatinine Clearance 54 mL/min (70-130); Calcium 9.6 mg/dL (7.8-10.44); Carbon Dioxide 26 mmol/L (23-31); Chloride 99 mmol/L (98-107); Estimated GFR-MDRD 52; Glucose 101 mg/dL (83-110); Potassium 3.2 mmol/L (3.5-5.1); Sodium 135 mmol/L (136-145)
[2017-12-04] MEDS ORDERED: HCTHIAZID PO SCH (09:00)
[2017-12-04] MEDS ORDERED: Enoxaparin Sodium 40 MG/0.4 ML SYRINGE SC SCH (09:00)
[2017-12-04] MEDS ORDERED: AMLODIPIN PO SCH (09:00)
[2017-12-04] MEDS ORDERED: OLMESARTAN PO SCH (09:00)
[2017-12-04] MEDS ORDERED: [UNRECOGNIZED DRUG - OTHER] PO SCH (09:00)
[2017-12-04] MEDS: Clopidogrel Bisulfate 75 MG TAB PO SCH (09:34)
[2017-12-04] MEDS: Hydrochlorothiazide 25 MG TAB PO SCH (09:34)
[2017-12-04] MEDS: Ubidecarenone 50 MG CAP PO SCH (09:34)
[2017-12-04] MEDS: CeleCOXIB 100 MG CAP PO SCH ×2 (09:35→20:48)
[2017-12-04] MEDS: Amlodipine 5 MG TAB PO SCH (09:35)
--- NOTE | 2017-12-04 10:57 | CON ---
DATE OF CONSULTATION: 12/04/2017 HISTORY OF PRESENT ILLNESS: Patient is a 77-year-old woman with a long history of coronary artery disease who recently suffered myocardial infarction and presents with recurrent chest discomfort. The patient previously underwent coronary bypass surgery x3. She had a WATSON placed to LAD and two saphenous vein grafts. She also has a history of severe peripheral vascular disease. She has had stents placed also in her carotid arteries. The patient is followed by Dr. Levy. The patient was seen on 11/09/2017 with a non-Q-wave myocardial infarction. She had a peak troponin level of 8. The patient declined to undergo cardiac catheterization. She was placed on medical therapy. She went to see Dr. Levy, who apparently performed a stress test which did not show significant evidence of ischemia. The patient had been treated medically. She developed recurrent chest discomfort. The patient did not take her nitroglycerin and an ambulance was contacted. She received nitroglycerin in the ambulance with eventual resolution of her chest discomfort. The patient denies having any present chest discomfort. PAST MEDICAL HISTORY: 1. Coronary artery disease. 2. Hypertension. 3. Dyslipidemia. 4. Cerebrovascular disease. 5. GE reflux. 6. History of renal artery stenosis. PAST SURGICAL HISTORY: Hysterectomy, coronary artery bypass surgery, cholecystectomy, carpal tunnel surgery. SOCIAL HISTORY: She is a former smoker. ALLERGIES: LASIX, STADOL, and LISINOPRIL. MEDICATIONS ON ADMISSION: Norvasc 10 daily, Lipitor 40 at bedtime, Plavix 75 daily, Benicar, Tribenzor 40/5/25 tablet daily, Aciphex 20 daily, CoQ10 10 daily. REVIEW OF SYSTEMS: A 10-point system unremarkable. No history of easy bruising , bleeding, bright red blood per rectum. PHYSICAL EXAMINATION: GENERAL: This is a well-developed woman in no acute distress. VITAL SIGNS: Blood pressure was 135/63. NECK: No jugular venous distention. LUNGS: Clear to auscultation. HEART: Regular rate and rhythm. Normal S1 and S2. She had 1/6 systolic murmur. ABDOMEN: Nondistended. EXTREMITIES: Showed no edema. SKIN: Warm and dry. VASCULAR: Radial pulses are 2+. NEUROLOGIC: Exam is nonfocal. LABORATORY DATA AND IMAGING DATA: Sodium 135, potassium 3.2, chloride 99, bicarbonate 26, BUN 16, creatinine 1.0, glucose 52, troponin 0.059, BNP is 285. White blood cell count is 11.2, hemoglobin 12.8, hematocrit 37.1, and platelets 293. EKG revealed normal sinus rhythm with left axis deviation. No acute ST-T wave changes. IMPRESSION: 1. Unstable angina. 2. History of recent myocardial infarction. 3. History of coronary artery bypass surgery x3. 4. Hypertension. 5. Peripheral vascular disease. 6. Cerebrovascular disease. 7. Dyslipidemia. This is an unfortunate woman who recently suffered a myocardial infarction presents with recurrent chest discomfort. The patient will be treated with subcutaneous Lovenox. The patient is taking Plavix. I would recommend adding aspirin. We will follow this patient with you through her hospitalization. Her prognosis is guarded. JULIAD
[2017-12-04] MEDS ORDERED: Potassium Chloride 20 MEQ TAB PO SCH (12:45)
[2017-12-04] MEDS: Amlodipine 10 MG TAB PO SCH (16:48)
--- NOTE | 2017-12-04 17:57 | CON ---
DATE OF CONSULTATION: 12/04/2017 REFERRING PHYSICIAN: Dr. Ulysses Rasmussen. REASON FOR CONSULTATION: Atrial flutter. PRIMARY DIALER: Dr. Levy in [place], [place]. HISTORY OF PRESENT ILLNESS: Ms. Coyle is a 77-year-old woman with a long history of coronary arter y disease who has been hospitalized in the past month for recent myocardial infarction and again pres ents with recurrent chest pain. In the past, she has undergone triple vessel coronary artery bypass grafting with WATSON to the LAD and 2 saphenous vein grafts placed. She also has a history significant with peripheral vascular disease and has had her carotid arteries stented. When she was admitted in early November, she presented with a non-ST elevation MA with a slightly elevated troponin. She has been medically managed since then. However, was not taking her aspirin at home. Prior to presentin g to the emergency room via EMS, patient had been experiencing chest pain at home, called 911 as pers isted 15 to 20 minutes. She was given nitroglycerin and aspirin by EMS, which eventually resolved he r chest pain. She does report that she had some perceived heart racing with this episode. Since hos pitalized within the past 24 hours, patient was in the shower. At which point, the secured entrance monitor recognize the patient had converted into atrial fibrillation with controlled rates. Patient was asy mptomatic and denied any heart racing, palpitations, lightheadedness, or near syncope. She does endo rse having a remote history of atrial fibrillation following her bypass surgery. Her episode occurre d a few weeks postoperatively, she go to the emergency room and have medications administered as well as undergo cardioversion to restore sinus rhythm. She is currently on dual antiplatelet therapy of aspirin and Plavix. When she was last hospitalized, she was tried on metoprolol and reports that her heart rate dropped significantly even on low dose metoprolol. Review of the chart revealed her hari ycardia was documented as low as 54 beats per minute on metoprolol 25 mg b.i.d. REVIEW OF SYSTEMS: General: Denies fevers, chills, malaise, night sweats, or recent weight fluctuat ions. HEENT: Patient denies vision changes, speech changes, or difficulty swallowing. Cardiovascul ar: Positive for recent chest pain and palpitations at home, negative for palpitations, syncope, dixon r syncope. Neurologic: Patient denies stroke or stroke like symptoms including unilateral weakness, paresthesias, facial droop, or speech and vision changes. GI: Patient denies nausea, vomiting, tomy rrhea, or blood in the stool. Pulmonary: Patient denies shortness of breath, recent respiratory ill ness, or productive cough. Hematologic: Patient denies easy bruising, uncontrolled bleeding or bloo d in her urine. PAST MEDICAL HISTORY: 1. Coronary artery disease with prior PCI and coronary artery bypass grafting (WATSON to LAD and 2 sap henous vein grafts). 2. Carotid artery stenosis, status post stenting. 3. Recent non-ST elevation MA in 11/2017, medically managed. 4. Hypertension. 5. Dyslipidemia. 6. Gastroesophageal reflux disease. 7. Renal artery stenosis. PAST SURGICAL HISTORY: Hysterectomy, coronary artery bypass grafting, cholecystectomy, and carpal tu nnel. SOCIAL HISTORY: Positive for history of tobacco habituation, but no current use. Negative for alcoh ol abuse or illicit drug use. ALLERGIES: LASIX, STADOL and LISINOPRIL. HOME MEDICATIONS: Norvasc 10 mg daily, Lipitor 40 mg at bedtime, Plavix 75 mg daily, Benicar, Triben zor 40/5/25 tablet daily, Aciphex 20 daily, CoQ10 daily. PHYSICAL EXAMINATION: GENERAL: This is a well-appearing, well-groomed and well-nourished female in no acute dist ress. She is alert and oriented. Her speech is clear and her affect is appropriate. VITAL SIGNS: Temperature 98.7 degrees Fahrenheit, pulse 62, respirations 16, oxygen saturation 94% o n room air, blood pressure 146/67. HEENT: Patient is normocephalic. Her sclerae are anicteric. EOMs intact. There is no jugular veno us distention. NECK: Supple. No lymphadenopathy and thyroid is nonpalpable. PULMONARY: Clear to auscultation bilaterally without wheezes, crackles, or rhonchi. Respirations ar e even and unlabored with good bilateral excursion. CARDIOVASCULAR: Heart rate is currently regularly regular with normal S1 and S2. She does have a 1/ 6 systolic murmur. EXTREMITIES: Warm and dry to touch without clubbing, cyanosis, or edema. GASTROINTESTINAL: Abdomen is soft and nontender without palpable masses. Hepatojugular reflux is ne gative. NEUROLOGIC: Cranial nerves II-XII grossly intact and nonfocal. DATABASE: Hematology on 12/04/2017. WBC 11.2, hemoglobin 12.8, hematocrit 37.1, platelet count 293. Coagulation panel: PT 13.1, INR 1.0. Chemistry on 12/04/2017, sodium 135, potassium 3.2, chloride 99, carbon dioxide 26, BUN 16, creatinine 1.02. Serial troponin I currently 0.059 and trending up. BNP 285.6. Chest x-ray on 12/03/2017, mild pulmonary venous congestion, nodular density in the righ t lower lobe. Telemetry and 12-lead EKGs all were personally reviewed by myself. Patient is current ly maintaining sinus mechanism in the 50 to 60 range. On 12/04/2017 at 12:00 p.m., patient was found to be in atrial flutter, possibly typical with rate well controlled in the 60s. Patient has an inco mplete right bundle branch block with left axis deviation. IMPRESSION: 1. Paroxysmal atrial flutter, possibly typical. 2. Extensive coronary artery disease with recent myocardial infarction and prior bypass grafting. C urrently on dual antiplatelet therapy of aspirin and Plavix. 3. QT prolongation documented 467 milliseconds this hospitalization. 4. Tendency for bradycardia with low dose beta-balwinder therapy in the recent past. Patient was on 2 5 mg metoprolol b.i.d. with heart rates dipping into the mid to low 50s range. PLAN: Patient does report intolerance to beta balwinder therapy even in low dose in the past and repor ts very significant drop in heart rate with this class of medication. We discussed rate control vers us antiarrhythmic therapy. With that being said, patient does have limited antiarrhythmic medication options. Given her extensive coronary artery disease and a QT prolongation. At this time, consider ation is for amiodarone versus Multaq therapy. Review of her telemetry strips and her atrial flutter could suggest typical morphology and the patien t may benefit from CTI ablation once stable. At this point, she is not a good PVAI candidate, but co uld be in the future once medically stable once her coronary artery disease is medically stable. Reg arding oral anticoagulation with her atrial arrhythmias, there is a limited consideration given her a lready in place, dual antiplatelet therapy as well as NSAID use on a daily basis. At this point, it may be safest to continue dual antiplatelet therapy without addition of a NOAC with significantly inc reased bleeding risk on triple therapy. May have the patient where monitor as an outpatient to lionel wilson understand her atrial arrhythmia burden. Thank you for allowing us to participate in the care of this patient. We will continue to follow and consider the options for antiarrhythmic therapy.
[2017-12-04] MEDS: Enoxaparin Sodium 80 MG/0.8 ML SYRINGE SC SCH (20:48)
[2017-12-04] MEDS: Atorvastatin Calcium 40 MG TAB PO SCH (20:48)
[2017-12-05] MEDS: CeleCOXIB 100 MG CAP PO SCH (08:11)
[2017-12-05] MEDS: Ubidecarenone 50 MG CAP PO SCH (08:11)
[2017-12-05] MEDS: Enoxaparin Sodium 80 MG/0.8 ML SYRINGE SC SCH (08:12)
[2017-12-05] MEDS: Amlodipine 5 MG TAB PO SCH (08:12)
[2017-12-05] MEDS: Clopidogrel Bisulfate 75 MG TAB PO SCH (08:12)
[2017-12-05] MEDS: Hydrochlorothiazide 25 MG TAB PO SCH (08:12)
[2017-12-05] MEDS ORDERED: Aspirin 81 mg Enteric Coated Tablet PO SCH (09:00)
--- NOTE | 2017-12-05 09:07 | PDOC.PN ---
- Subjective Encounter Start Date: 12/04/17 Encounter Start Time: 11:00 Patient is seen today, Alert and oriented. She has no chest pains now, Pt says if there is ny procedures planned , she would like to be transfered to [place] to Dr. weiss. Discussed with Dr. Rasmussen, he fells pt is high risk now, need Lovenox 1mg/kg BID for Cool off. - Objective MAR Reviewed: Yes Vital Signs & Weight: Vital Signs (12 hours) Temp Pulse Resp BP Pulse Ox 12/05/17 07:46 98.4 F 58 L 18 12/05/17 07:36 98.1 F 57 L 16 187/82 H 96 12/05/17 03:56 98.4 F 58 L 18 133/60 93 L 12/05/17 00:00 161/72 H Weight Weight 165 lb I&O: 12/04/17 12/05/17 12/06/17 06:59 06:59 06:59 Intake Total 420 Output Total 600 Balance -180 Result Diagrams: 12/04/17 04:27 12/04/17 04:27 Radiology Reviewed by me: Yes Phys Exam - Physical Examination HEENT: PERRLA, moist MMs Neck: no nodes, no JVD Respiratory: no wheezing, no rales Cardiovascular: RRR, no significant murmur Gastrointestinal: soft, non-tender Musculoskeletal: no edema, pulses present Neurological: non-focal, normal sensation Lymphatic: no nodes Skin: no rash, normal turgor Dx/Plan (1) NSTEMI (non-ST elevated myocardial infarction) Code(s): I21.4 - NON-ST ELEVATION (NSTEMI) MYOCARDIAL INFARCTION Status: Acute Comment: Pt has Unstbale Angina and per Cardfioogy need Lovenox 1mg/kg BID for Coronary cool off, Will christineley Monitor, pt is high risk for transfer to any facility and Cardiology do not recommed at this time. Continue on BB, Aspirin and statin. (2) CAD (coronary artery disease) Code(s): I25.10 - ATHSCL HEART DISEASE OF [place] CORONARY ARTERY W/O ANG PCTRS Status: Chronic Comment: Above plan. Pt is high risk with h/o CABG and recent Stress test was normal after elevated troponins. (3) HLD (hyperlipidemia) Code(s): E78.5 - HYPERLIPIDEMIA, UNSPECIFIED Status: Chronic Comment: Continue on Home dose Statin, Goal LDL <100 (4) HTN (hypertension) Code(s): I10 - ESSENTIAL (PRIMARY) HYPERTENSION Status: Chronic Comment: Sarah Monitor HTN, goal < 125/75, ACIE/ BB. - Plan cont current plan of care, PT/OT, delinquency prevention social worker, DVT proph w/lovenox * . - Discharge Day Encounter end time: 11:35 Review of Systems - Review of Systems Constitutional: negative: fever, chills, sweats, weakness, malaise, other Eyes: negative: Pain, Vision Change, Conjunctivae Inflammation, Eyelid Inflammation, Redness, Other ENT: negative: Ear Pain, Ear Discharge, Nose Pain, Nose Discharge, Nose Congestion, Mouth Pain, Mouth Swelling, Throat Pain, Throat Swelling, Other Respiratory: negative: Cough, Dry, Shortness of Breath, Hemoptysis, SOB with Excertion, Pleuritic Pain, Sputum, Wheezing Cardiovascular: negative: chest pain, palpitations, orthopnea, paroxysmal nocturnal dyspnea, edema, light headedness, other Gastrointestinal: negative: Nausea, Vomiting, Abdominal Pain, Diarrhea, Constipation, Melena, Hematochezia, Other Genitourinary: negative: Dysuria, Frequency, Incontinence, Hematuria, Retention , Other Musculoskeletal: negative: Neck Pain, Shoulder Pain, Arm Pain, Back Pain, Hand Pain, Leg Pain, Foot Pain, Other Skin: negative: Rash, Lesions, Christiano, Bruising, Other - Medications/Allergies Allergies/Adverse Reactions: Allergies Allergy/AdvReac Type Severity Reaction Status Date / Time butorphanol tartrate Allergy Verified 04/09/13 14:40 [From Stadol] latex Allergy Verified 12/03/17 23:54 lisinopril Allergy Verified 04/07/14 17:44 Medications: Current Medications Acetaminophen (Tylenol) 650 mg PO Q4H PRN PRN Reason: Headache/Fever or Pain Acetaminophen (Tylenol) 650 mg AL Q4H PRN PRN Reason: Headache/Fever or Pain Amlodipine Besylate (Norvasc) 10 mg PO 1600 [facility] Last Admin: 12/04/17 16:48 Dose: 10 mg Amlodipine Besylate (Norvasc) 5 mg PO DAILY [facility] Last Admin: 12/05/17 08:12 Dose: 5 mg Aspirin (Ecotrin) 81 mg PO DAILY [facility] Last Admin: 12/05/17 08:10 Dose: 81 mg Atorvastatin Calcium (Lipitor) 40 mg PO HS [facility] Last Admin: 12/04/17 20:48 Dose: 40 mg Celecoxib (Celebrex) 100 mg PO BID [facility] Last Admin: 12/05/17 08:11 Dose: 100 mg Clopidogrel Bisulfate (Plavix) 75 mg PO DAILY [facility] Last Admin: 12/05/17 08:12 Dose: 75 mg Coenzyme Q10 (Coenzyme Q10) 100 mg PO DAILY [facility] Last Admin: 12/05/17 08:11 Dose: 100 mg Lidocaine HCl 10 ml/ Al (Hydroxide/Mg Hydroxide 30 ml) 0 ml SSW Q8H PRN PRN Reason: heartburn Enoxaparin Sodium (Lovenox) 80 mg SC 0900,2100 [facility] Last Admin: 12/05/17 08:12 Dose: 80 mg Hydrochlorothiazide (Hydrochlorothiazide) 25 mg PO DAILY [facility] Last Admin: 12/05/17 08:12 Dose: 25 mg Isosorbide Mononitrate (Imdur Er) 30 mg PO 1200 [facility] Last Admin: 12/04/17 10:55 Dose: 30 mg Nitroglycerin (Nitrostat) 0.4 mg PO Q5MIN PRN PRN Reason: Chest Pain Olmesartan (Benicar) 40 mg PO DAILY [facility] Last Admin: 12/05/17 08:10 Dose: 40 mg Ondansetron HCl (Zofran) 4 mg IVP Q6H PRN PRN Reason: Nausea/Vomiting Pantoprazole Sodium (Protonix) 40 mg PO DAILY [facility] Last Admin: 12/05/17 08:12 Dose: 40 mg Sodium Chloride (Flush - Normal Saline) 10 ml IVF Q12HR [facility] Last Admin: 12/05/17 08:13 Dose: 10 ml Sodium Chloride (Flush - Normal Saline) 10 ml IVF PRN PRN PRN Reason: Saline Flush
--- NOTE | 2017-12-05 12:27 | PDOC.PN ---
- Subjective Encounter Start Date: 12/05/17 Encounter Start Time: 10:00 Patient is seen along with her Daughter at Bedside, no other Concenr snoted, Explained SHE WILL BE IN HOSPITAL for 2-3 days for cool off with Lovenox per cardiology. - Objective MAR Reviewed: Yes Vital Signs & Weight: Vital Signs (12 hours) Temp Pulse Resp BP Pulse Ox 12/05/17 11:20 97.6 F 63 16 150/68 H 99 12/05/17 07:46 98.4 F 58 L 18 12/05/17 07:36 98.1 F 57 L 16 187/82 H 96 12/05/17 03:56 98.4 F 58 L 18 133/60 93 L Weight Weight 165 lb I&O: 12/04/17 12/05/17 12/06/17 06:59 06:59 06:59 Intake Total 420 Output Total 600 Balance -180 Result Diagrams: 12/04/17 04:27 12/04/17 04:27 Radiology Reviewed by me: Yes Phys Exam - Physical Examination HEENT: PERRLA, moist MMs Neck: no nodes, no JVD Respiratory: no wheezing, no rales Cardiovascular: RRR, no significant murmur Gastrointestinal: soft, non-tender Musculoskeletal: no edema, pulses present Neurological: non-focal, normal sensation Dx/Plan (1) NSTEMI (non-ST elevated myocardial infarction) Code(s): I21.4 - NON-ST ELEVATION (NSTEMI) MYOCARDIAL INFARCTION Status: Acute Comment: Pt has Unstbale Angina and per Cardfioogy need Lovenox 1mg/kg BID for Coronary cool off, Will christineley Monitor, pt is high risk for transfer to any facility and Cardiology do not recommed at this time. No BB for her bradycardia, Aspirin and statin.Stbale , Plan for Multaq or Amiodarone By Dr. Polanco today. (2) CAD (coronary artery disease) Code(s): I25.10 - ATHSCL HEART DISEASE OF [place] CORONARY ARTERY W/O ANG PCTRS Status: Chronic Comment: Above plan. Pt is high risk with h/o CABG and recent Stress test was normal after elevated troponins. (3) HLD (hyperlipidemia) Code(s): E78.5 - HYPERLIPIDEMIA, UNSPECIFIED Status: Chronic Comment: Continue on Home dose Statin, Goal LDL <100 (4) HTN (hypertension) Code(s): I10 - ESSENTIAL (PRIMARY) HYPERTENSION Status: Chronic Comment: Sarah Monitor HTN, goal < 125/75, ACIE/ BB. - Plan cont current plan of care, plan discussed w/ family, PT/OT, group social worker, incentive spirometry, DVT proph w/lovenox * . - Discharge Day Encounter end time: 10:35 Review of Systems - Review of Systems Constitutional: negative: fever, chills, sweats, weakness, malaise, other Eyes: negative: Pain, Vision Change, Conjunctivae Inflammation, Eyelid Inflammation, Redness, Other Respiratory: negative: Cough, Dry, Shortness of Breath, Hemoptysis, SOB with Excertion, Pleuritic Pain, Sputum, Wheezing Cardiovascular: negative: chest pain, palpitations, orthopnea, paroxysmal nocturnal dyspnea, edema, light headedness, other Gastrointestinal: negative: Nausea, Vomiting, Abdominal Pain, Diarrhea, Constipation, Melena, Hematochezia, Other Musculoskeletal: negative: Neck Pain, Shoulder Pain, Arm Pain, Back Pain, Hand Pain, Leg Pain, Foot Pain, Other Skin: negative: Rash, Lesions, Christiano, Bruising, Other - Medications/Allergies Allergies/Adverse Reactions: Allergies Allergy/AdvReac Type Severity Reaction Status Date / Time butorphanol tartrate Allergy Verified 04/09/13 14:40 [From Stadol] latex Allergy Verified 12/03/17 23:54 lisinopril Allergy Verified 04/07/14 17:44 Medications: Current Medications Acetaminophen (Tylenol) 650 mg PO Q4H PRN PRN Reason: Headache/Fever or Pain Acetaminophen (Tylenol) 650 mg MO Q4H PRN PRN Reason: Headache/Fever or Pain Amlodipine Besylate (Norvasc) 10 mg PO 1600 [facility] Last Admin: 12/04/17 16:48 Dose: 10 mg Amlodipine Besylate (Norvasc) 5 mg PO DAILY [facility] Last Admin: 12/05/17 08:12 Dose: 5 mg Aspirin (Ecotrin) 81 mg PO DAILY [facility] Last Admin: 12/05/17 08:10 Dose: 81 mg Atorvastatin Calcium (Lipitor) 40 mg PO HS [facility] Last Admin: 12/04/17 20:48 Dose: 40 mg Celecoxib (Celebrex) 100 mg PO BID [facility] Last Admin: 12/05/17 08:11 Dose: 100 mg Clopidogrel Bisulfate (Plavix) 75 mg PO DAILY [facility] Last Admin: 12/05/17 08:12 Dose: 75 mg Coenzyme Q10 (Coenzyme Q10) 100 mg PO DAILY [facility] Last Admin: 12/05/17 08:11 Dose: 100 mg Lidocaine HCl 10 ml/ Al (Hydroxide/Mg Hydroxide 30 ml) 0 ml SSW Q8H PRN PRN Reason: heartburn Enoxaparin Sodium (Lovenox) 80 mg SC 0900,2100 [facility] Last Admin: 12/05/17 08:12 Dose: 80 mg Hydrochlorothiazide (Hydrochlorothiazide) 25 mg PO DAILY [facility] Last Admin: 12/05/17 08:12 Dose: 25 mg Isosorbide Mononitrate (Imdur Er) 30 mg PO 1200 [facility] Last Admin: 12/05/17 12:07 Dose: 30 mg Nitroglycerin (Nitrostat) 0.4 mg PO Q5MIN PRN PRN Reason: Chest Pain Olmesartan (Benicar) 40 mg PO DAILY [facility] Last Admin: 12/05/17 08:10 Dose: 40 mg Ondansetron HCl (Zofran) 4 mg IVP Q6H PRN PRN Reason: Nausea/Vomiting Pantoprazole Sodium (Protonix) 40 mg PO DAILY [facility] Last Admin: 12/05/17 08:12 Dose: 40 mg Sodium Chloride (Flush - Normal Saline) 10 ml IVF Q12HR [facility] Last Admin: 12/05/17 08:13 Dose: 10 ml Sodium Chloride (Flush - Normal Saline) 10 ml IVF PRN PRN PRN Reason: Saline Flush
[2017-12-05] MEDS: Amlodipine 10 MG TAB PO SCH (15:37)
--- NOTE | 2017-12-05 16:50 | PDOC.CTH ---
<Dara Gibbs - Last Filed: 12/05/17 16:48> Cardiology Progress Note - Subjective EP progress note: Patient has done well overnight. No new cardiac complaints. No perceived arrhythmias, heart racing, palpitations, or chest pain. Denies stroke or stroke like symptoms. - Objective Vital Signs Temp Pulse Resp BP BP Pulse Ox 12/05/17 15:37 64 12/05/17 15:34 97.5 F L 64 17 142/97 H 99 12/05/17 11:20 97.6 F 63 16 150/68 H 99 12/05/17 07:46 98.4 F 58 L 18 12/05/17 07:36 98.1 F 57 L 16 187/82 H 96 Weight 165 lb 12/04/17 12/05/17 12/06/17 06:59 06:59 06:59 Intake Total 420 Output Total 600 Balance -180 - Physical Examination General/Neuro: alert & oriented x3, NAD Neck: no JVD present Lungs: CTA, unlabored respirations Heart: PMI normal Extremities: other: (no edema) - Telemetry Telemetry Rhythm: NSR - Labs Result Diagrams: 12/04/17 04:27 12/04/17 04:27 Troponin/CKMB CK-MB (CK-2) 3.5 ng/mL (0-6.6) 12/03/17 18:37 Troponin I 0.059 ng/mL (< 0.028) H 12/04/17 00:40 - Assessment/Plan 1. Paroxysmal atrial flutter, possibly typical- asymptomatic. No recurrence overnight. It is possible Ms. Coyle is having AF with RVR episodes at home when she is experiencing heart racing and recurrent chest pain. We will have her wear a 3 week monitor upon discharge to better asses the arrhythmia burden then follow up at one of the [facility] clinic locations in 4-6 weeks ([place] or [place] are closer for patient convenience). Watchful waiting is prudent at this time. Rate was well controlled with single episode of PAF. AAD selection is limited with her CAD and QTc prolongation. 2. CAD with recent NSTEMI, DAPT with plavix and ASA. Medically managed 3. QTc prolongation, 467ms 4. Tendency for bradycardia with even low dose beta balwinder therapy 5. Oral anticoagulation- currently on DAPT. This is likely adequate given the low burden we currently see and to avoid the risk of bleeding with triple anticoagulation therapy. If she stops plavix in the future, she will require addition of NOAC. <Rgegie Avila - Last Filed: 12/05/17 19:09> Cardiology Progress Note - Objective Vital Signs Temp Pulse Resp BP BP Pulse Ox 12/05/17 15:37 64 12/05/17 15:34 97.5 F L 64 17 142/97 H 99 12/05/17 11:20 97.6 F 63 16 150/68 H 99 12/05/17 07:46 98.4 F 58 L 18 12/05/17 07:36 98.1 F 57 L 16 187/82 H 96 Weight 165 lb 12/04/17 12/05/17 12/06/17 06:59 06:59 06:59 Intake Total 420 Output Total 600 Balance -180 - Labs Result Diagrams: 12/04/17 04:27 12/04/17 04:27 Troponin/CKMB CK-MB (CK-2) 3.5 ng/mL (0-6.6) 12/03/17 18:37 Troponin I 0.059 ng/mL (< 0.028) H 12/04/17 00:40 Attending Addendum - Attending Addendum Date/Time: 12/05/171908 I personally evaluated the patient and discussed the management with Ms Gibbs. I agree with the History, Examination, Assessment and Plan documented above with any addition or exceptions noted below.
[2017-12-05] MEDS: Apixaban 5 MG TAB PO SCH (21:36)
[2017-12-05] MEDS: Atorvastatin Calcium 40 MG TAB PO SCH (21:36)
[2017-12-06 05:32] LABS: Hemoglobin 11.5 g/dL (12.0-16.0); Platelet Count 309 thou/uL (130-400)
--- NOTE | 2017-12-06 09:29 | PDOC.CTH ---
Cardiology Progress Note - Subjective EP progress note: Patient has done well overnight with no new cardiac complaints. She was started on Eliquis last night and has had minor amounts of blood from her nose this AM and states she has an ENT referral. No heart racing, palpitations, or chest pain. No near syncope or syncope reported. - Objective Vital Signs Temp Pulse Resp BP Pulse Ox 12/06/17 04:55 94 L 12/06/17 04:00 97.7 F 67 18 170/74 H 94 L Weight 165 lb 3.2 oz 12/05/17 12/06/17 12/07/17 06:59 06:59 06:59 Intake Total 420 1160 Output Total 600 2200 Balance -180 -1040 - Physical Examination General/Neuro: alert & oriented x3, NAD Neck: carotid US brisk, no JVD present Lungs: CTA, unlabored respirations Heart: PMI normal, RRR Abdomen: no HSM, NT/ND - Telemetry Telemetry Rhythm: NSR - Labs Result Diagrams: 12/06/17 04:24 12/06/17 04:24 Troponin/CKMB CK-MB (CK-2) 3.5 ng/mL (0-6.6) 12/03/17 18:37 Troponin I 0.059 ng/mL (< 0.028) H 12/04/17 00:40 - Assessment/Plan 1. Paroxysmal atrial flutter, possibly typical- asymptomatic. No recurrence overnight. It is possible Ms. Coyle is having AF with RVR episodes at home when she is experiencing heart racing and recurrent chest pain. We will have her wear a 3 week monitor upon discharge to better asses the arrhythmia burden then follow up at one of the [facility] clinic locations in 4-6 weeks ([place] or [place] are closer for patient convenience). Watchful waiting is prudent at this time. Rate was well controlled with single episode of PAF. AAD selection is limited with her CAD and QTc prolongation. 2. CAD with recent NSTEMI, DAPT with plavix and ASA. Medically managed 3. QTc prolongation, 467ms 4. Tendency for bradycardia with even low dose beta balwinder therapy 5. Oral anticoagulation- Started on Eliquis 5mg BID last night and remains on plavix and ASA. She has begun to have slight nasal bleeding and is to be evaluated by ENT. Cardiology may be considering stopping Plavix in favor of NOAC with ASA 81mg to prevent bleeding issues on triple anticoagulation. Ok for DC by EP. Will follow as outpatient.
[2017-12-06] MEDS: Clopidogrel Bisulfate 75 MG TAB PO SCH (11:23)
[2017-12-06] MEDS: Apixaban 5 MG TAB PO SCH (11:23)
[2017-12-06] MEDS: Ubidecarenone 50 MG CAP PO SCH (11:23)
[2017-12-06] MEDS: Hydrochlorothiazide 25 MG TAB PO SCH (11:23)
[2017-12-06] MEDS: Amlodipine 5 MG TAB PO SCH (11:24)
[2017-12-06] MEDS: Amlodipine 10 MG TAB PO SCH (17:28)
[2017-12-06 18:38] VITALS: BP 141/63; TEMP 97.2
== END 2017-12-06 17:55 | disposition home or self-care (01) | DRG 281 ==
LOC: ERS 18:14 → 2SW 21:26 → OBSVTOIN 12-04 11:27 → 2NO 12-05 11:34
PROVIDERS: ADMIT Internal Medicine; ATTEND Internal Medicine
DX: I25.110 Atherosclerotic heart disease of native coronary artery with unstable angina pectoris (principal); I21.4 Non-ST elevation (NSTEMI) myocardial infarction; D68.32 Hemorrhagic disorder due to extrinsic circulating anticoagulants; I48.3 Typical atrial flutter; I22.2 Subsequent non-ST elevation (NSTEMI) myocardial infarction; R04.0 Epistaxis; T45.515A Adverse effect of anticoagulants, initial encounter; E78.5 Hyperlipidemia, unspecified; I10 Essential (primary) hypertension; Z95.1 Presence of aortocoronary bypass graft; K21.9 Gastro-esophageal reflux disease without esophagitis; Z95.5 Presence of coronary angioplasty implant and graft; I73.9 Peripheral vascular disease, unspecified; I67.9 Cerebrovascular disease, unspecified
CPT/HCPCS: 36415; 71045; 80048; 80053; 82553; 82565; 83880; 84484; 85014; 85018; 85025; 85049; 85610; 85730; 93005; 94760; A4216; J1650

== ENCOUNTER 2018-11-11 11:16 | Outpatient (CLI) | payer MEDICARE, BC ==
--- NOTE | 2018-11-11 14:49 | MRI ---
MRI LUMBAR SPINE WITHOUT CONTRAST: HISTORY: Transient paralysis of the left lower extremity. COMPARISON: None. TECHNIQUE: MRI lumbar spine is performed without intravenous Gadolinium administration. Multisequential, multip lanar imaging is performed. FINDINGS: Appropriate T1 marrow signal intensity of the lumbar vertebrae. Lumbar spine vertebral body height i s maintained. There is no fracture. No significant STIR hyperintensity to suggest vertebral body he ight or ligamentous injury. Symmetric signal intensity of the psoas muscles. Appropriate signal intensity of the visualized solid organs. The right kidney is atrophic. There are T2 hyperintensities in the left and right renal cortex alistair tible with bilateral cortical cysts. Conus medullaris terminates at the mid L1 level. T12-L1: Adequate disk hydration. No significant central canal stenosis. Foramen are patent. L1-L2: Adequate disk hydration. No significant central canal stenosis. Neural foramen are patent. L2-L3: Adequate disk hydration. There is a central/left paracentral as well as a right paracentral disk protrusion. Overall, there is mild central canal stenosis. There is mild ligamentum flavum thi ckening and facet hypertrophy. Narrowing of both subarticular zones without obscuration of either tr aversing L3 nerve root. Mild right and left foraminal narrowing. L3-L4: Adequate disk hydration. There is no significant posterior disk abnormality. No significant central canal stenosis. Mild ligamentum flavum thickening and facet hypertrophy. Mild bilateral fo raminal narrowing. L4-L5: Adequate disk hydration. No significant loss of disk space height. Generalized disk bulge, ligamentum flavum thickening, and facet hypertrophy result in mild central canal stenosis. There is mild narrowing in both subarticular zones with partial obscuration of bilateral traversing L5 nerve r oots. Bilateral facet hypertrophy with a small amount of fluid in both facet joints. Mild to modera te right and mild left foraminal narrowing. L5-S1: Desiccation with severe loss of disk space height. No high-grade central canal stenosis. Mo derate right and moderate to severe left foraminal narrowing. IMPRESSION: Degenerative change of the lumbar spine as above. POS: LEANDRA
== END 2018-11-11 11:17 | disposition home or self-care (01) ==
LOC: MRI 11:16
PROVIDERS: ATTEND Nurse Practitioner
DX: R29.818 Other symptoms and signs involving the nervous system (principal); M47.816 Spondylosis without myelopathy or radiculopathy, lumbar region
CPT/HCPCS: 72148

== ENCOUNTER 2018-12-25 15:39 | Outpatient (CLI) | payer MEDICARE, BC ==
--- NOTE | 2018-12-25 17:10 | MRI ---
[facility] brain with and without contrast: 12/25/2018 HISTORY: 78-year-old female with "R 53.81, declining functional status" Comparison: Brain MRI of 11/08/2014 FINDINGS: There are numerous tiny and small patchy foci of T2 signal abnormality in the hammonds radiata and cent rum semiovale, and to a lesser degree in the addi, without major interval change compared to the prio r MRI. No obstructive hydrocephalus, abnormal intra-axial enhancement, recent or remote intra-axial h emorrhage, restricted diffusion, mass, mass effect, midline shift, or extra-axial fluid collection. N o major interval change overall. IMPRESSION: 1. [id number] chronic ischemic white matter changes (small vessel disease). 2. No significant interval change since 11/08/2014.
== END 2018-12-25 15:40 | disposition home or self-care (01) ==
LOC: MRI 15:39
PROVIDERS: ATTEND Neurological Surgery
DX: R53.81 Other malaise (principal); I67.9 Cerebrovascular disease, unspecified
CPT/HCPCS: 70553; 82565

== ENCOUNTER 2019-01-24 14:26 | Outpatient (CLI) | payer MEDICARE, BC ==
--- NOTE | 2019-01-27 08:05 | MRI ---
MRI Thoracic Spine WO Con History: [M 54.1 for thoracic radiculopathy] Comparison: None. Findings: The aortic contour is not aneurysmal. No retroperitoneal adenopathy. There are T2 hyperinte nse foci of both kidneys incompletely evaluated on this examination. The cord signal is normal. No fracture. No malalignment. No marrow infiltrative process. No neural fo raminal or spinal canal narrowing throughout the thoracic spine. Mild midthoracic disc desiccation. Impression: No fracture, listhesis, neural foraminal or spinal canal narrowing.
--- NOTE | 2019-01-27 09:21 | MRI ---
MRI CERVICAL SPINE: Date: 01/24/19 Multiplanar, multisequential imaging of cervical spine obtained. INDICATION: Cervicalgia. FINDINGS: Cervical vertebra maintain normal height. Cervical vertebral signal is normal. Disc spaces are mainta ined. There is a mild anterolisthesis at C5-6 measuring approximately 3.0 mm. Alignment is otherwise normally maintained. Minimal disc bulge and spondylosis at C2-3, C3-4, and C4-5 mildly flatten the thecal sac, however, an terior subarachnoid space is preserved. There is no foraminal stenosis apparent. At C5-6, slight anterolisthesis is noted above with mild posterior disc bulge and spondylosis which d oes efface the anterior subarachnoid space; however, no significant cord impingement. There is mild r ight foraminal encroachment at this level due to facet and uncinate hypertrophy. At C6-7, no significant abnormality. At C7-T1, minimal anterolisthesis. No significant disc bulge or spondylosis. Cord signal is normal. IMPRESSION: Mild anterolisthesis at C5-6 with mild posterior disc bulge and spondylosis at this level as describe d above. POS: [facility]
== END 2019-01-24 14:27 | disposition home or self-care (01) ==
LOC: BICMRI 14:26
PROVIDERS: ATTEND Neurological Surgery
DX: M47.22 Other spondylosis with radiculopathy, cervical region (principal); M50.11 Cervical disc disorder with radiculopathy, high cervical region; M54.14 Radiculopathy, thoracic region; R53.1 Weakness; M43.12 Spondylolisthesis, cervical region
CPT/HCPCS: 72141; 72146